=== PATIENT | female | born 1950 | race Caucasian/White ===

== ENCOUNTER 2016-09-01 07:29 | Day surgery (SDC) | payer OTHER ==
[~2016-09-01] VITALS: Ht 170.2 cm; Wt 68.0 kg
[~2016-09-01 07:29] MED LIST: Sodium Chloride LOK Flush 10 mL Syringe IV PRN; fentaNYL-PF 50 mCg/mL 2 mL Inj IVPUSH PRN
[2016-09-01 08:10] VITALS: BP 95/69; PULSE 97; RESP 14; O2SAT 95
[2016-09-01] MEDS ORDERED: fentaNYL-PF 50 mCg/mL 2 mL Inj ONE (08:54)
[2016-09-01] MEDS: 0.9% Sodium Chloride 1,000 ML IV SCH ×2 (09:14→09:23)
[2016-09-01 09:32] VITALS: PULSE 80; RESP 16; O2SAT 99
--- NOTE | 2016-09-01 09:33 | PCM.ENDCOL ---
Colonoscopy Date of Service: Sep 01, 2016 Physician Cristi Montaño MD Pre Procedure Diagnosis: screening colon cancer Post Procedure Dx & Findings: polyp hemorrhoids Procedure Colonoscopy PROCEDURE IN DETAIL: Prep adequate Withdrawal time 12 min After unremarkable rectal examination the Olympus video colonoscope was inserted patient's anal canal and was advanced to cecum. Landmarks were identified including the ileocecal valve and appendiceal orifice. Scope was withdrawn systematically. Visualized colonic mucosa showed healthy shiny mucosa with normal healthy-appearing vasculature. There was a 1 mm polyp in the ascending colon. This was removed completely using cold forcepts. In the rectum retroflexion was done which showed hemorrhoids. Anal canal was inspected carefully on the way out and hemorrhoids noted. Impression Polyp 1 status post complete removal Hemorrhoids Recommendation Repeat colonoscopy in 5 years Presedation Assessment Risks and Benefits Informed consent was obtained from the patient after all risks and benefits including but not limited to drug reaction, infection, pain, bleeding, perforation, as well as alternatives were discussed. Patient monitoring Continuous pulse oximetry, cardiac monitoring, blood pressure monitoring, IV access, and oxygen at 2L per nasal cannula. Periprocedural Fentanyl: Fentanyl 100mcg Incrementally Midazolam: Midazolam 5mg Incrementally Complications There were no periprocedural complications identified. Post Procedure Plan Post Procedure Recommendations 1. Restrict activities today. 2. Resume normal activities in the morning. 3. Resume medications. 4. Patient informed of normal post procedure side effects as bloating, drowsiness, blood streaking in the stool. 5. average risk CRCS. If colon polyps come back as: -Hyperplastic- can repeat colonoscopy in 10 years -Tubular adenoma- repeat colonoscopy in 5 years -Tubulovillous/villous adenoma- repeat colonoscopy in 3 years -If any dysplasia- return to clinic as soon as possible 6. Please don't hesitate to call me with any questions. Cristi Montaño MD Sep 01, 2016 09:33
[2016-09-01 09:42] VITALS: BP 85/62; PULSE 64; RESP 16; O2SAT 99
[2016-09-01 09:49] VITALS: BP 104/64; PULSE 67; RESP 16; O2SAT 100
--- NOTE | 2016-09-06 10:03 | PATH ---
SURGICAL PATHOLOGY Attending Physician:Cristi Montaño M.D. CASE STATUS: Signed Out PATIENT NAME: TAHIR QUINTERO PID: [id number] : 1950 DATE COLLECTED:09/01/2016 16:23 SPECIMEN: Colon, Biopsy CLINICAL HISTORY: 1. ASCENDING COLON POLYP FINAL DIAGNOSIS: 1.ASCENDING COLON POLYP: TUBULAR ADENOMA INVOLVING SINGLE BIOPSY FRAGMENT. ICD10 D12.2 GROSS DESCRIPTION: The specimen is received in one formalin filled container labeled with the patient's name, sublabeled "ascending colon polyp" and consists of 2 portions of tissue which aggregate to 0.3 x 0.3 x 0.2 CM. The specimen is entirely submitted in one cassette. 09/01/2016 DAC MICRO DESCRIPTION: See diagnosis. ICD-9 CODES: CPT CODES: 1: 15532 Electronically Signed Out Moshe Valera MD [facility] Pathology [facility] [address], [place] [address] Technical component performed at [facility], [facility] [address], [place], [address]
== END 2016-09-01 23:59 | disposition home or self-care (01) ==
LOC: END 07:29
PROVIDERS: ATTEND Internal Medicine
DX: Z12.11 Encounter for screening for malignant neoplasm of colon (principal); D12.2 Benign neoplasm of ascending colon; K64.9 Unspecified hemorrhoids
CPT/HCPCS: 45380; 99153; G0500; J2250; J3010; J7030